=== PATIENT | female | born 1970 | race Caucasian/White ===

== ENCOUNTER 2018-03-31 11:00 | Inpatient (IN) | payer OTHER ==
[~2018-03-31] VITALS: Ht 157.5 cm; Wt 77.6 kg
[2018-03-31] MEDS ORDERED: TRAMADOL HCL50 MG PO (11:25)
[2018-03-31] MEDS ORDERED: FLEXERIL PO (11:25)
[2018-03-31] MEDS ORDERED: AMBIEN10 MG PO (11:25)
[2018-03-31] MEDS ORDERED: PROVENTIL HFA6.7 GM IH (11:51)
== END 2018-04-05 12:26 | disposition home or self-care (01) | DRG 743 ==
LOC: OB/GYN 04-02 08:57 → O/R 04-02 08:57 → SURH 04-02 11:00 → OB/GYN 04-02 17:20
PROVIDERS: Obstetrics & Gynecology
PROC: 0UT70ZZ Resection of Bilateral Fallopian Tubes, Open Approach (ICD-10-PCS; 2018-04-02)
PROC: 0UB00ZZ Excision of Right Ovary, Open Approach (ICD-10-PCS; 2018-04-02)
PROC: 0UT90ZZ Resection of Uterus, Open Approach (ICD-10-PCS; principal; 2018-04-02 11:15)
DX: D25.2 Subserosal leiomyoma of uterus (principal); N72 Inflammatory disease of cervix uteri; N83.11 Corpus luteum cyst of right ovary

== ENCOUNTER 2019-02-09 11:31 | Outpatient (CLI) | payer OTHER ==
[~2019-02-09 11:31] MED LIST: AMBIEN10 MG PO; FLEXERIL PO; PROVENTIL HFA6.7 GM IH; TRAMADOL HCL50 MG PO
[2019-02-09] MEDS ORDERED: TROKENDI XR50 MG PO (17:14)
[2019-02-09] MEDS ORDERED: SINGULAIR10 MG PO (17:15)
[2019-02-10] MEDS ORDERED: PERCOCET 5-3251 EACH PO (12:58)
== END 2019-02-09 11:40 | disposition home or self-care (01) ==
LOC: EKG 11:31
DX: R07.89 Other chest pain (principal); I10 Essential (primary) hypertension; Z01.818 Encounter for other preprocedural examination

== ENCOUNTER 2019-02-10 07:23 | Day surgery (SDC) | payer OTHER ==
[~2019-02-10 07:23] MED LIST changes: +SINGULAIR10 MG PO; +TROKENDI XR50 MG PO
[2019-02-10] MEDS ORDERED: PERCOCET 5-3251 EACH PO (12:58)
== END 2019-02-10 14:15 | disposition home or self-care (01) ==
LOC: CIR.AMB 07:23 → ADM 12:15 → CIR.AMB 14:15 → ADM 15:00
DX: M23.321 Other meniscus derangements, posterior horn of medial meniscus, right knee (principal); M23.351 Other meniscus derangements, posterior horn of lateral meniscus, right knee; M94.261 Chondromalacia, right knee; M65.861 Other synovitis and tenosynovitis, right lower leg

== ENCOUNTER 2021-04-11 06:25 | Day surgery (SDC) | payer OTHER ==
[~2021-04-11 06:25] MED LIST changes: +BUDEO.25 IH; +FLOVENT DISKU100 MCG IH; +LYSTEDA650 MG PO; +NEURONTIN600 MG; +PEPCID40 MG PO; +PERCOCET 5-3251 EACH PO; +TOPROL XL25 M1 PO
== END 2021-04-11 16:05 | disposition home or self-care (01) ==
LOC: CIR.AMB 06:25
PROVIDERS: ATTEND Orthopaedic Surgery
DX: M75.121 Complete rotator cuff tear or rupture of right shoulder, not specified as traumatic (principal); M19.211 Secondary osteoarthritis, right shoulder; M66.821 Spontaneous rupture of other tendons, right upper arm; Z20.822 Contact with and (suspected) exposure to COVID-19